=== PATIENT | female | born 1985 | race Caucasian/White ===

== ENCOUNTER 2023-11-10 10:55 | Emergency (ER) | payer BC ==
[2023-11-10] MEDS: Diphtheria/Tetanus Toxoids,Adult (Td) 0.5 ML SDV IM ONE (13:27)
== END 2023-11-10 14:44 | disposition home or self-care (01) ==
LOC: JP.ED 10:55
DX: S01.81XA Laceration without foreign body of other part of head, initial encounter (principal); Z23 Encounter for immunization; Z79.899 Other long term (current) drug therapy; Z88.0 Allergy status to penicillin; Z88.2 Allergy status to sulfonamides; Z88.8 Allergy status to other drugs, medicaments and biological substances; W54.0XXA Bitten by dog, initial encounter
CPT/HCPCS: 12013; 90471; 90714; 99282; 99283-25